=== PATIENT | female | born 1985 ===

== ENCOUNTER 2017-07-22 13:49 | Emergency (ER) | payer BC ==
[2017-07-22 14:05] VITALS: BP 131/82; PULSE 105; RESP 16; TEMP 98.6; O2SAT 99
--- NOTE | 2017-07-22 14:34 | ED PDOC ---
HPI: Female Pain Time Seen by Provider: 07/22/17 14:03 Chief Complaint (Nursing): Female Genitourinary Chief Complaint (Provider): Dysuria History Per: Patient History/Exam Limitations: no limitations Onset/Duration Of Symptoms: Days (x3) Current Symptoms Are (Timing): Still Present Pain Scale Rating Of: 8 Quality Of Discomfort: "Pain" Associated Symptoms: Other (no hematuria). denies: Back Pain Additional Complaint(s): Flori Houston, a 32 year old female, with a past medical history of urinary tract infections presents to the ED complaining of suprapubic pain and pain on urination for 2-3 days. Patient denies , back pain, hematuria n/v. Pt is taking oral contraception pills.. PMD: Jurgen Singh Abnormal Vaginal Bleeding: No Past Medical History Reviewed: Historical Data, Nursing Documentation, Vital Signs Vital Signs: Last Vital Signs Temp 98.6 F 07/22/17 14:04 Pulse 105 H 07/22/17 14:04 Resp 16 07/22/17 14:04 BP 131/82 07/22/17 14:04 Pulse Ox 99 07/22/17 14:04 - Medical History PMH: No Chronic Diseases Denies: Chronic Kidney Disease - Surgical History Surgical History: No Surg Hx - Family History Family History: States: Unknown Family Hx - Social History Current smoker - smoking cessation education provided: No Ex-Smoker (has not smoked in the last 12 months): No Alcohol: None Drugs: Denies - Home Medications Home Medications: Ambulatory Orders Medication Instructions Recorded Fluconazole [Diflucan] 150 mg PO QWK #2 tab 07/22/17 - Allergies Allergies/Adverse Reactions: Allergies Allergy/AdvReac Type Severity Reaction Status Date / Time No Known Allergies Allergy Verified 07/22/17 14:03 Review of Systems ROS Statement: Except As Marked, All Systems Reviewed And Found Negative Gastrointestinal: Positive for: Diarrhea Genitourinary Female: Negative for: Hematuria Musculoskeletal: Negative for: Back Pain Physical Exam - Reviewed Nursing Documentation Reviewed: Yes Vital Signs Reviewed: Yes - Physical Exam Appears: Positive for: Non-toxic, No Acute Distress Head Exam: Positive for: ATRAUMATIC, NORMAL INSPECTION, NORMOCEPHALIC Skin: Positive for: Normal Color, Warm, Dry. Negative for: Rash Eye Exam: Positive for: Normal appearance ENT: Positive for: Normal ENT Inspection Neck: Positive for: Normal Cardiovascular/Chest: Positive for: Regular Rate, Rhythm, Chest Non Tender. Negative for: Tachycardia Respiratory: Positive for: Normal Breath Sounds. Negative for: Wheezing, Respiratory Distress Gastrointestinal/Abdominal: Positive for: Bowel Sounds, Soft, Tenderness (mild suprapubiic tenderness). Negative for: Guarding, Rebound Back: Positive for: Normal Inspection. Negative for: L CVA Tenderness, R CVA Tenderness Neurologic/Psych: Positive for: Alert, Oriented, Gait - ECG O2 Sat by Pulse Oximetry: 99 (RA) Pulse Ox Interpretation: Normal Medical Decision Making Medical Decision Makin Initial Impression 32 y/o female presenting with dysuria Initial Plan: * Urine Culture * Urinalysis * Reevaluation Scribe Attestation Documented by Sarah Tomas acting as a scribe for Kusum Josue PA-C. Scribe Attestation All medical record entries made by the Scribe were at my direction and personally dictated by me. I have reviewed the chart and agree that the record accurately reflects my personal performance of the history, physical exam, medical decision making, and the department course for this patient. I have also personally directed, reviewed, and agree with the discharge instructions and disposition. Disposition - Clinical Impression Clinical Impression: Yeast cystitis - Patient ED Disposition Is Patient to be Admitted: No - Disposition Disposition: Routine/Home Disposition Time: 15:21 Condition: GOOD Prescriptions: Fluconazole [Diflucan] 150 mg PO QWK #2 tab Instructions: Vulvovaginal Candidiasis (ED) Forms: [employer] (Bel[place]ian) - POA Present On Arrival: None
[2017-07-22 14:59] LABS: RBC URINE 21 /hpf (0-3); URINE BACTERIA RARE (<OCC); URINE BILIRUBIN NEGATIVE (NEGATIVE); URINE BLOOD SMALL (NEGATIVE); URINE COLOR YELLOW (YELLOW); URINE GLUCOSE (UA) NEG (Normal); URINE KETONE NEGATIVE (NEGATIVE); URINE LEUKOCYTE ESTERASE LARGE Leu/uL (Negative); URINE PROTEIN NEGATIVE (NEGATIVE); URINE UROBILINOGEN 0.2-1.0 mg/dL (0.2-1.0); WBC URINE 122 /hpf (0-5)
== END 2017-07-22 15:28 | disposition home or self-care (01) ==
LOC: H.ER 13:49
DX: B37.41 Candidal cystitis and urethritis (principal)